=== PATIENT | female | born 1990 | race Asian ===

== ENCOUNTER 2017-06-16 10:27 | Emergency (ER) | payer OTHER ==
[2017-06-16 10:37] VITALS: RESP 16; TEMP 98.1
--- NOTE | 2017-06-16 11:21 | EDPHY ---
H & P Time Seen by Provider: 06/16/17 10:41 HPI/ROS: CHIEF COMPLAINT: Needlestick History by patient HISTORY OF PRESENT ILLNESS: 19-year-old woman who is otherwise healthy works as a nurse at [employer] [facility] stuck herself in the thumb with an insulin needle after giving the patient an insulin subcutaneous injection. There was no blood on the needle. The source is a 69-year-old man in the rehab facility for an infection of his hip after surgery. He has a MRSA infection is currently on doxycycline. The patient was worried about MRSA. The source has no known HIV risk factors. The patient's tetanus status is up-to-date. REVIEW OF SYSTEMS: As in HPI, and all other systems reviewed and are negative Smoking Status: Never smoked Physical Exam: General Appearance: Alert and no distress. Eyes: Pupils equal and round no injection. Musculoskeletal: Neck is supple and nontender. Extremities: No visible wound on left thumb. Skin: No rashes or lesions except as described above. 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 Source patient blood drawn was done at the health care facility where this occurred. [facility] policy was follow-up and is pending. I did discuss the case with Dr. Patricia of Infectious diseases because of the patient's concern about MRSA exposure. He felt that there was minimal risk regarding MRSA infection. He also did not recommend HIV post exposure prophylaxis given the situation. I discussed this with the patient and gave her reassurance. She will follow up with workmen's compensation. - Depart Disposition: Home, Routine, Self-Care Clinical Impression: Needlestick injury accident with exposure to body fluid Condition: Good Instructions: Body Substance Exposure (ED), Postexposure Prophylaxis (ED) Additional Instructions: You were seen by Dr. Carolann Wesley today. There is no indication for post exposure prophylaxis treatment at this time. Please follow-up with your workmen's compensation and get the results of the source patient's blood tests to determine if further evaluation or treatment is needed. Return for any worsening or new concerns. Referrals: NONE *PRIMARY CARE P,. [Primary Care Provider] - As per Instructions
[2017-06-16 11:52] VITALS: BP 142/76; PULSE 80; O2SAT 96
[2017-06-17 04:39] LABS: HEPATITIS C ANTIBODY TOTAL NEGATIVE (NEGATIVE); HIV TYPE 1 AND 2 NEGATIVE (NEGATIVE)
== END 2017-06-16 11:46 | disposition home or self-care (01) ==
LOC: CED 10:27
DX: S69.92XA Unspecified injury of left wrist, hand and finger(s), initial encounter (principal); W46.0XXA Contact with hypodermic needle, initial encounter; Y92.89 Other specified places as the place of occurrence of the external cause; Y99.0 Civilian activity done for income or pay; Y93.89 Activity, other specified
CPT/HCPCS: G0472